=== PATIENT | female | born 1935 | race Caucasian/White ===

== ENCOUNTER 2023-02-21 17:29 | Inpatient (IN) | payer MEDICARE ==
[~2023-02-21] VITALS: Ht 165.1 cm; Wt 48.3 kg
[2023-02-21] MEDS ORDERED: IV NS 0.9% 500 ML BAG IV ONE (18:30)
[2023-02-21 18:48] LABS: BASOPHILS # (AUTO) 0.2 K/uL (0.0-0.2); BASOPHILS % (AUTO) 1.1 % (0.0-2.0); HEMATOCRIT 48 % (33-45); LYMPHOCYTES # (AUTO) 0.4 K/uL (0.8-4.8); LYMPHOCYTES % (AUTO) 2.6 % (20.0-44.0); MEAN CORPUSCULAR HEMOGLOBIN 31 PG (26.0-33.0); MEAN CORPUSCULAR HGB CONC 34 g/dl (31.0-36.0); MEAN CORPUSCULAR VOLUME 93 fL (82-100); MONOCYTES # (AUTO) 0.7 K/uL (0.1-1.30); MONOCYTES % (AUTO) 4.3 % (2.0-12.0); NEUTROPHILS # (AUTO) 15.8 K/uL (1.8-8.9); PLATELET COUNT (AUTO) 201 K/uL (150-450); RED BLOOD CELL COUNT(AUTO) 5.15 MIL/uL (4.0-5.2); RED CELL DISTRIBUTION WIDTH 13.3 % (11.5-15.0); WHITE BLOOD COUNT (AUTO) 17.2 K/uL (4.3-11.0)
[2023-02-21 18:56] LABS: CALCIUM, SERUM 9.6 mg/dL (8.5-10.1); CARBON DIOXIDE 27 mmol/L (21-32); CHLORIDE 101 mmol/L (98-107); CREATININE 0.9 mg/dL (0.6-1.3); GLUCOSE 124 mg/dL (74-106); POTASSIUM 3.4 mmol/L (3.5-5.1); SODIUM SERUM 136 mmol/L (136-145); UREA NITROGEN, BLOOD 24 mg/dL (7-18)
[2023-02-21 18:57] LABS: SERUM AMMONIA 36 umol/L (11-32)
[2023-02-21 19:02] LABS: ALANINE AMINOTRANSFERASE 28 U/L (12-78); ALBUMIN 3.6 g/dL (3.4-5.0); ALKALINE PHOSPHATASE 101 U/L (46-116); ASPARTATE AMINOTRANSFERASE 80 U/L (15-37); BILIRUBIN,DIRECT 0.5 mg/dL (0.0-0.2); TOTAL PROTEIN, SERUM 7.1 g/dL (6.4-8.2)
[2023-02-21 19:06] LABS: INR 1.06 (0.91-1.10); PARTIAL THROMBOPLASTIN TIME 29.2 SEC (24.3-34.3); PROTHROMBIN TIME 11.2 SECS (9.2-11.1)
[2023-02-21 19:19] LABS: LACTIC ACID 2.3 mmol/L (0.4-2.0)
[2023-02-21 20:00] VITALS: BP 146/95; TEMP 97.7; O2SAT 98
[2023-02-21] MEDS ORDERED: IV NS 0.9% 1,000 ML BAG IV ONE (20:30)
[2023-02-21] MEDS ORDERED: ZOLPIDEM TARTRATE 5 MG TABLET PO PRN (22:30)
[2023-02-21] MEDS ORDERED: ONDANSETRON HCL/PF 4 MG/2 ML VIAL IVP PRN (22:30)
[2023-02-21] MEDS ORDERED: MAGNESIUM HYDROXIDE 30 ML UDC PO PRN (22:30)
[2023-02-21] MEDS ORDERED: ACETAMINOPHEN 325 MG TABLET PO PRN (22:30)
[2023-02-21] MEDS ORDERED: IV NS 0.9% 1,000 ML IV PRN (22:30)
[2023-02-21] MEDS ORDERED: MAG HYDROX/AL HYDROX/SIMETH 30 ML UDC PO PRN (22:30)
[2023-02-21] MEDS ORDERED: Z GUARD REMEDY 4 OZ OINT TP PRN (22:30)
[2023-02-21 23:15] VITALS: BP 179/68; TEMP 97; O2SAT 97
[2023-02-21] MEDS ORDERED: ENOXAPARIN SODIUM 30 MG/0.3 ML DISP.SYRIN SQ SCH (23:30)
[2023-02-22] MEDS ORDERED: PIPERACI/TAZO 3.375GM/D5W 50ML PB IV ONE ×2 (00:14→05:42)
[2023-02-22] MEDS: PIPERACILLIN /TAZOBACTAM 3.375 G in IV D5W 50 ML IV SCH ×2 (00:19→05:44)
[2023-02-22 01:56] VITALS: BP 179/68; TEMP 97; O2SAT 97
[2023-02-22 04:00] VITALS: BP 136/73; TEMP 98.6; O2SAT 95
[2023-02-22] MEDS ORDERED: IV NS 0.9% 1,000 ML BAG IV PRN (04:00)
[2023-02-22] MEDS: IV NS 0.9% 1,000 ML IV PRN ×3 (05:17→15:20)
[2023-02-22 06:08] LABS: APPEARANCE,URINE TURBID (CLEAR); BILIRUBIN,URINE 1+ (NEGATIVE); BLOOD, URINE 3+ Ery/uL (NEGATIVE); COLOR,URINE DARK YELLOW (YELLOW); KETONES,URINE 1+ mg/dL (NEGATIVE); LEUKOCYTE ESTERASE ,URINE TRACE (NEGATIVE); NITRITE, URINE POSITIVE (NEGATIVE); PH,URINE 6.5 (5.0-8.0); PROTEIN,URINE 2+ mg/dl (NEGATIVE); UGLUCOSE 1+ mg/dL (NEGATIVE)
[2023-02-22 06:12] LABS: ADD URINE CULTURE YES; BACTERIA,URINE Moderate /HPF (None Seen); SQUAMOUS EPITHELIAL CELL,UR Rare /HPF (None Seen)
[2023-02-22 06:21] LABS: BASOPHILS % (AUTO) 0.3 % (0.0-2.0); HEMATOCRIT 41 % (33-45); HEMOGLOBIN 13.7 g/dL (11.5-14.8); LYMPHOCYTES # (AUTO) 0.7 K/uL (0.8-4.8); MEAN CORPUSCULAR HEMOGLOBIN 31 PG (26.0-33.0); MEAN CORPUSCULAR HGB CONC 34 g/dl (31.0-36.0); MEAN CORPUSCULAR VOLUME 93 fL (82-100); MONOCYTES # (AUTO) 0.7 K/uL (0.1-1.30); MONOCYTES % (AUTO) 4.4 % (2.0-12.0); NEUTROPHILS # (AUTO) 13.4 K/uL (1.8-8.9); NEUTROPHILS % (AUTO) 90.3 % (43.0-81.0); PLATELET COUNT (AUTO) 165 K/uL (150-450); WHITE BLOOD COUNT (AUTO) 14.8 K/uL (4.3-11.0)
[2023-02-22 06:50] LABS: CHOLESTEROL 178 mg/dL (<200); HDL CHOLESTEROL 96 mg/dL (40-60); LDL 70 mg/dL (0-99); TRIGLYCERIDES 75 mg/dL (30-150)
[2023-02-22 06:54] LABS: CALCIUM, SERUM 8.9 mg/dL (8.5-10.1); CARBON DIOXIDE 25 mmol/L (21-32); CHLORIDE 106 mmol/L (98-107); CREATININE 0.7 mg/dL (0.6-1.3); GLUCOSE 114 mg/dL (74-106); MAGNESIUM 2.1 mg/dL (1.8-2.4); PHOSPHORUS 4.3 mg/dL (2.5-4.9); POTASSIUM 3.7 mmol/L (3.5-5.1); SODIUM SERUM 138 mmol/L (136-145); UREA NITROGEN, BLOOD 27 mg/dL (7-18)
[2023-02-22 07:00] LABS: CREATINE KINASE, TOTAL 1588 U/L (26-192)
[2023-02-22 08:00] VITALS: BP 163/66; TEMP 98.1; O2SAT 99
[2023-02-22] MEDS: ENOXAPARIN SODIUM 40 MG/0.4 ML DISP.SYRIN SQ SCH ×2 (09:06→21:42)
[2023-02-22] MEDS: PANTOPRAZOLE 40 MG VIAL IV SCH (09:07)
[2023-02-22] MEDS: METOPROLOL TARTRATE 50 MG TABLET PO SCH ×2 (09:07→21:41)
[2023-02-22] MEDS: ATORVASTATIN 10 MG TABLET PO SCH (09:08)
[2023-02-22] MEDS: ASPIRIN 81 MG TAB.CHEW PO SCH (09:08)
[2023-02-22 12:00] VITALS: BP 144/70; TEMP 98.8; O2SAT 96
[2023-02-22] MEDS ORDERED: PIPERACILLIN /TAZOBACTAM 3.375 G in IV D5W 50 ML IV SCH (12:00)
[2023-02-22] MEDS: ZOSYN IVPB 2.25 G in IV D5W 50ml IV SCH ×2 (13:30→17:08)
[2023-02-22 16:00] VITALS: BP 128/77; TEMP 99.5; O2SAT 99
[2023-02-22] MEDS: ENSURE ENLIVE 237 ML LIQUID (VANILLA) PO SCH (17:27)
[2023-02-22 20:00] VITALS: BP 148/64; TEMP 98.9; O2SAT 95
[2023-02-23] MEDS: ZOSYN IVPB 2.25 G in IV D5W 50ml IV SCH ×4 (00:53→17:49)
[2023-02-23] MEDS: IV NS 0.9% 1,000 ML IV PRN ×2 (00:54→17:49)
[2023-02-23 07:00] VITALS: BP 164/70; TEMP 98.1; O2SAT 98
[2023-02-23 07:34] LABS: BASOPHILS % (AUTO) 0.2 % (0.0-2.0); EOSINOPHILS % (AUTO) 0.1 % (0.0-6.0); HEMATOCRIT 35 % (33-45); HEMOGLOBIN 11.8 g/dL (11.5-14.8); LYMPHOCYTES # (AUTO) 1.2 K/uL (0.8-4.8); LYMPHOCYTES % (AUTO) 12.4 % (20.0-44.0); MEAN CORPUSCULAR HEMOGLOBIN 32 PG (26.0-33.0); MEAN CORPUSCULAR HGB CONC 34 g/dl (31.0-36.0); MEAN CORPUSCULAR VOLUME 94 fL (82-100); MONOCYTES # (AUTO) 0.7 K/uL (0.1-1.30); NEUTROPHILS # (AUTO) 7.6 K/uL (1.8-8.9); NEUTROPHILS % (AUTO) 80.3 % (43.0-81.0); PLATELET COUNT (AUTO) 134 K/uL (150-450); RED BLOOD CELL COUNT(AUTO) 3.66 MIL/uL (4.0-5.2); RED CELL DISTRIBUTION WIDTH 13.8 % (11.5-15.0); WHITE BLOOD COUNT (AUTO) 9.4 K/uL (4.3-11.0)
[2023-02-23 08:02] LABS: ALBUMIN 2.5 g/dL (3.4-5.0); BILIRUBIN,TOTAL 1.2 mg/dL (0.2-1.0); CALCIUM, SERUM 8.2 mg/dL (8.5-10.1); CREATININE 0.7 mg/dL (0.6-1.3); MAGNESIUM 2.2 mg/dL (1.8-2.4); PHOSPHORUS 2.9 mg/dL (2.5-4.9); POTASSIUM 3.3 mmol/L (3.5-5.1); TOTAL PROTEIN, SERUM 5.3 g/dL (6.4-8.2)
[2023-02-23] MEDS ORDERED: LOSARTAN POTASSIUM 50 MG TABLET PO SCH (09:00)
[2023-02-23] MEDS: ATORVASTATIN 10 MG TABLET PO SCH (09:22)
[2023-02-23] MEDS: POTASSIUM CHLORIDE 20 MEQ TAB.PRT.SR PO SCH ×2 (09:22→11:02)
[2023-02-23] MEDS: METOPROLOL TARTRATE 50 MG TABLET PO SCH ×2 (09:22→21:33)
[2023-02-23] MEDS: PANTOPRAZOLE 40 MG VIAL IV SCH (09:22)
[2023-02-23] MEDS: ASPIRIN 81 MG TAB.CHEW PO SCH (09:22)
[2023-02-23] MEDS: ENOXAPARIN SODIUM 30 MG/0.3 ML DISP.SYRIN SQ SCH (09:26)
[2023-02-23] MEDS: ENSURE ENLIVE 237 ML LIQUID (VANILLA) PO SCH ×2 (09:40→17:49)
[2023-02-23] MEDS: POLYVINYL ALCOHOL 15 ML BOTTLE EACHEYE SCH ×2 (15:50→21:33)
[2023-02-23 16:00] VITALS: BP 157/66; TEMP 98.1; O2SAT 96
[2023-02-23 20:00] VITALS: BP 151/57; TEMP 98.8; O2SAT 96
[2023-02-23 20:24] VITALS: BP 151/57; TEMP 98.8; O2SAT 96
[2023-02-24] VITALS (7 sets, daily range): BP systolic 141–162; BP diastolic 61–72; TEMP 97.7–98.8; O2SAT 94–96
[2023-02-24] MEDS: ZOSYN IVPB 2.25 G in IV D5W 50ml IV SCH ×4 (00:43→17:28)
[2023-02-24] MEDS: POLYVINYL ALCOHOL 15 ML BOTTLE EACHEYE SCH ×3 (04:12→20:46)
[2023-02-24 06:25] LABS: BASOPHILS % (AUTO) 0.3 % (0.0-2.0); EOSINOPHILS % (AUTO) 0.6 % (0.0-6.0); HEMATOCRIT 34 % (33-45); HEMOGLOBIN 11.5 g/dL (11.5-14.8); LYMPHOCYTES # (AUTO) 1.1 K/uL (0.8-4.8); LYMPHOCYTES % (AUTO) 19.1 % (20.0-44.0); MEAN CORPUSCULAR HEMOGLOBIN 31 PG (26.0-33.0); MEAN CORPUSCULAR HGB CONC 33 g/dl (31.0-36.0); MEAN CORPUSCULAR VOLUME 94 fL (82-100); MONOCYTES # (AUTO) 0.4 K/uL (0.1-1.30); MONOCYTES % (AUTO) 7.7 % (2.0-12.0); NEUTROPHILS # (AUTO) 4.2 K/uL (1.8-8.9); NEUTROPHILS % (AUTO) 72.3 % (43.0-81.0); PLATELET COUNT (AUTO) 117 K/uL (150-450); RED BLOOD CELL COUNT(AUTO) 3.65 MIL/uL (4.0-5.2); RED CELL DISTRIBUTION WIDTH 13.2 % (11.5-15.0); WHITE BLOOD COUNT (AUTO) 5.8 K/uL (4.3-11.0)
[2023-02-24] MEDS: IV NS 0.9% 1,000 ML IV PRN (06:55)
[2023-02-24 07:20] LABS: CALCIUM, SERUM 7.9 mg/dL (8.5-10.1); CREATININE 0.6 mg/dL (0.6-1.3); PHOSPHORUS 2.4 mg/dL (2.5-4.9); POTASSIUM 3.4 mmol/L (3.5-5.1)
[2023-02-24] MEDS: METOPROLOL TARTRATE 50 MG TABLET PO SCH ×2 (08:34→20:47)
[2023-02-24] MEDS: ATORVASTATIN 10 MG TABLET PO SCH (08:34)
[2023-02-24] MEDS: PANTOPRAZOLE 40 MG/PACK PACK PO SCH (08:34)
[2023-02-24] MEDS: ASPIRIN 81 MG TAB.CHEW PO SCH (08:35)
[2023-02-24] MEDS: ENOXAPARIN SODIUM 30 MG/0.3 ML DISP.SYRIN SQ SCH (08:43)
[2023-02-24] MEDS: ENSURE ENLIVE 237 ML LIQUID (VANILLA) PO SCH ×2 (09:00→17:00)
[2023-02-24] MEDS: VALSARTAN 80 MG TABLET PO SCH (09:42)
[2023-02-24] MEDS ORDERED: POTASSIUM CHLORIDE 20 MEQ TAB.PRT.SR PO SCH (10:00)
[2023-02-24] MEDS ORDERED: NEUTRA PHOS 1 POWD.PACKET PO ONE (16:00)
[2023-02-25] MEDS: ZOSYN IVPB 2.25 G in IV D5W 50ml IV SCH ×5 (00:07→23:08)
[2023-02-25] MEDS: POLYVINYL ALCOHOL 15 ML BOTTLE EACHEYE SCH ×3 (04:04→21:24)
[2023-02-25 07:07] LABS: BASOPHILS % (AUTO) 0.3 % (0.0-2.0); EOSINOPHILS % (AUTO) 0.9 % (0.0-6.0); HEMATOCRIT 33 % (33-45); HEMOGLOBIN 11.4 g/dL (11.5-14.8); LYMPHOCYTES # (AUTO) 1.4 K/uL (0.8-4.8); LYMPHOCYTES % (AUTO) 27.2 % (20.0-44.0); MEAN CORPUSCULAR HEMOGLOBIN 32 PG (26.0-33.0); MEAN CORPUSCULAR HGB CONC 34 g/dl (31.0-36.0); MEAN CORPUSCULAR VOLUME 93 fL (82-100); MONOCYTES # (AUTO) 0.4 K/uL (0.1-1.30); MONOCYTES % (AUTO) 8.9 % (2.0-12.0); NEUTROPHILS # (AUTO) 3.1 K/uL (1.8-8.9); NEUTROPHILS % (AUTO) 62.7 % (43.0-81.0); PLATELET COUNT (AUTO) 134 K/uL (150-450); RED BLOOD CELL COUNT(AUTO) 3.56 MIL/uL (4.0-5.2); RED CELL DISTRIBUTION WIDTH 13.1 % (11.5-15.0)
[2023-02-25 07:41] LABS: CALCIUM, SERUM 8.1 mg/dL (8.5-10.1); CREATININE 0.7 mg/dL (0.6-1.3); POTASSIUM 3.5 mmol/L (3.5-5.1)
[2023-02-25 08:00] VITALS: BP 158/80; TEMP 97.9; O2SAT 97
[2023-02-25] MEDS: ENOXAPARIN SODIUM 30 MG/0.3 ML DISP.SYRIN SQ SCH (08:57)
[2023-02-25] MEDS: ENSURE ENLIVE 237 ML LIQUID (VANILLA) PO SCH ×2 (09:00→17:00)
[2023-02-25] MEDS: METOPROLOL TARTRATE 50 MG TABLET PO SCH ×2 (09:02→21:24)
[2023-02-25] MEDS: VALSARTAN 80 MG TABLET PO SCH (09:04)
[2023-02-25] MEDS: PANTOPRAZOLE 40 MG/PACK PACK PO SCH (09:05)
[2023-02-25] MEDS: ATORVASTATIN 10 MG TABLET PO SCH (09:12)
[2023-02-25] MEDS: ASPIRIN 81 MG TAB.CHEW PO SCH (09:12)
[2023-02-25] MEDS ORDERED: AMLO-212 PO (11:47)
[2023-02-25] MEDS ORDERED: ASPI-1169 PO (11:47)
[2023-02-25] MEDS ORDERED: VALS80TA31 PO (11:47)
[2023-02-25] MEDS ORDERED: METO50TA16 PO (11:47)
[2023-02-25] MEDS ORDERED: NITR100C6 PO (11:47)
[2023-02-25] MEDS ORDERED: ATOR10TA PO (11:47)
[2023-02-25 16:00] VITALS: BP 134/63; TEMP 98.7; O2SAT 98
[2023-02-25 20:00] VITALS: BP 150/66; TEMP 99; O2SAT 96
[2023-02-26] MEDS: POLYVINYL ALCOHOL 15 ML BOTTLE EACHEYE SCH ×2 (04:25→13:00)
[2023-02-26] MEDS: ZOSYN IVPB 2.25 G in IV D5W 50ml IV SCH ×2 (05:00→11:41)
[2023-02-26 07:30] VITALS: BP 155/74; TEMP 98.2; O2SAT 96
[2023-02-26] MEDS ORDERED: AMLODIPINE BESYLATE 5 MG TABLET PO SCH (09:00)
[2023-02-26] MEDS: ENOXAPARIN SODIUM 30 MG/0.3 ML DISP.SYRIN SQ SCH (10:19)
[2023-02-26] MEDS: ASPIRIN 81 MG TAB.CHEW PO SCH (10:20)
[2023-02-26] MEDS: ENSURE ENLIVE 237 ML LIQUID (VANILLA) PO SCH (10:21)
[2023-02-26] MEDS: VALSARTAN 80 MG TABLET PO SCH (10:21)
[2023-02-26] MEDS: ATORVASTATIN 10 MG TABLET PO SCH (10:23)
[2023-02-26 10:24] VITALS: BP 155/74
[2023-02-26] MEDS: METOPROLOL TARTRATE 50 MG TABLET PO SCH (10:24)
[2023-02-26] MEDS: PANTOPRAZOLE 40 MG/PACK PACK PO SCH (10:25)
== END 2023-02-26 15:00 | DRG 871 ==
LOC: ER 17:29 → TELE 22:26 → MED 02-23 08:16
PROVIDERS: ADMIT Nurse Practitioner Acute Care; ATTEND Internal Medicine
DX: A41.9 Sepsis, unspecified organism (principal); G93.41 Metabolic encephalopathy; I21.A1 Myocardial infarction type 2; E87.20 Acidosis, unspecified; E72.20 Disorder of urea cycle metabolism, unspecified; I50.32 Chronic diastolic (congestive) heart failure; N13.6 Pyonephrosis; M62.82 Rhabdomyolysis; Z20.822 Contact with and (suspected) exposure to COVID-19; Z85.038 Personal history of other malignant neoplasm of large intestine; W19.XXXA Unspecified fall, initial encounter; Y92.9 Unspecified place or not applicable; E86.0 Dehydration; E87.6 Hypokalemia; R74.01 Elevation of levels of liver transaminase levels; I11.0 Hypertensive heart disease with heart failure; B96.89 Other specified bacterial agents as the cause of diseases classified elsewhere; J44.9 Chronic obstructive pulmonary disease, unspecified; K76.89 Other specified diseases of liver; J98.4 Other disorders of lung; N32.0 Bladder-neck obstruction; E80.6 Other disorders of bilirubin metabolism
CPT/HCPCS: 36415; 70450-TC; 71045-TC; 72125-TC; 80048-TC; 80053-TC; 80061-TC; 80076-TC; 81001; 82140-TC; 82550-TC; 82553; 83605-TC; 83735-TC; 84100-TC; 84439-TC; 84443-TC; 84484-TC; 85025-TC; 85730-TC; 87040-TC; 87086-TC; 92526; 92611-TC; 93307-TC; 97110-TC; 97112-TC; 97116-TC; 97530-TC; 97535-TC; A4223; C9113; G0378; J1650; J2543; J7030; J7040; J7060